=== PATIENT | female | born 1935 | race Caucasian/White ===

== ENCOUNTER 2017-05-18 10:26 | Inpatient (IN) ==
[2017-05-18] MEDS ORDERED: METOPROLOL TARTRATE 5 MG/5 ML VIAL IV ONE (11:02)
[2017-05-18 11:15] LABS: Basophils # (Auto) 0 K/mcL (0.0-0.3); Basophils % (Auto) 0.6 % (0.0-2.0); Eosinophils # (Auto) 0 K/mcL (0.0-0.7); Eosinophils % (Auto) 0.5 % (0.0-7.0); Granulocytes % (Auto) 80.3 % (38.0-78.0); Lymphocytes # (Auto) 0.7 K/mcL (1.5-4.8); Lymphocytes % (Auto) 12.1 % (15.5-49.0); Mean Cell Volume 94.2 fL (80.0-100.0); Mean Corpuscular HGB Conc 33.5 g/dL (31.0-36.0); Mean Corpuscular Hemoglobin 31.6 pg (26.0-34.0); Monocytes # (Auto) 0.4 K/mcL (0.1-0.9); Monocytes % (Auto) 6.5 % (1.0-12.0); Platelet Count 163 K/mcL (140-440); RBC 4.16 M/mcL (4.00-5.20); Red Cell Distribution Width 15.4 % (11.5-14.5)
[2017-05-18 11:37] LABS: ALT/SGPT 12 U/l (0-40); Albumin 4.2 gm/dL (3.2-5.2); Albumin/Globulin Ratio 1.8 (1.0-2.3); Alkaline Phosphatase 90 U/L (39-117); Blood Urea Nitrogen 14 mg/dl (8-23); Creatine Kinase 58 IU/L (24-170); Creatine Kinase MB 2.4 ng/ml (0-2.9)
[2017-05-18] MEDS ORDERED: 0.9 % SODIUM CHLORIDE 500 ML IV ONE (12:12)
[2017-05-18] MEDS ORDERED: DILTIAZEM 25 MG/5 ML VIAL IV ONE (12:13)
[2017-05-18] MEDS ORDERED: DILTIAZEM 125 MG in 0.9 % SODIUM CHLORIDE 100 ML IV SCH (12:15)
--- NOTE | 2017-05-18 12:20 | XRay Report ---
CLINICAL INFORMATION: Dyspnea COMPARISON: 07/04/2004 FINDINGS: The heart has increased and now moderately enlarged. Mediastinum is unremarkable. Pulmonary vessels are mildly distended and there is mild interstitial edema. Small infiltrate noted in the right base with minor atelectasis left base. IMPRESSION: Mild CHF Small right basilar infiltrate Interpreted and Authenticated by: Ryan Salinas 05/18/17
--- NOTE | 2017-05-18 12:21 | Emergency Department Note ---
SOB HPI - General Chief Complaint: Shortness of Breath/Dyspnea Stated Complaint: Shortness of breath, nausea Time Seen by Provider: 05/18/17 11:06 Source: patient Mode of arrival: wheelchair Limitations: no limitations - History of Present Illness 81-year-old female with a 5-6 day history of shortness of breath especially with exertion. She is to be able to walk a flight of stairs mildly short of breath but now she cannot even walk from room to room without getting out of breath. Her exercise tolerance is decreased and she feels like she is wheezing. Notes nausea but no vomiting. She is constipated lately and she is having decreased urine output. She denies any heart history especially atrial fibrillation or heart attacks - Related Data Home Medications Medication Instructions Recorded Confirmed ALPRAZolam [Xanax] 1 mg PO HS PRN 05/18/17 05/18/17 Levothyroxine Sodium [Tirosint] 137 mcg PO DAILY 05/18/17 05/18/17 Allergies Allergy/AdvReac Type Severity Reaction Status Date / Time No Known Drug Allergies Allergy Unverified 05/18/17 10:30 Review of Systems All systems ED: reviewed and negative except as stated. Past Medical History - Past Medical History Attestation: Yes: The following information was validated with the patient. Medical history: Reports: thyroid disease Surgical history ED: Reports: , cataract, cholecystectomy, colectomy, thyroidectomy Psychiatric history: Reports: anxiety Family history: Reports: CAD/MT - Social History smoking status: Never smoker Alcohol use: Reports: Recent (Nightly) Physical Exam Overweight female no acute distress. Normocephalic atraumatic. Conjunctive are clear sclerae nonicteric. No nasal discharge or congestion. Oropharynx is pink and moist. Neck is supple without lymphadenopathy thyromegaly. Scar from previous thyroidectomy. No carotid bruit. Heart is regular rhythm but tachycardic on auscultation. No murmur appreciated. Lungs are clear to auscultation bilaterally without wheezes rales rhonchi or respiratory distress. Abdomen soft nontender nondistended. No pedal edema. +2 radial pulse. Alert oriented able to answer questions appropriately. No dysarthria ataxia or tremor - General Limitations: no limitations Course Vital Signs Temperature 98.1 F 05/18/17 10:26 Pulse Rate 130 H 05/18/17 10:26 Respiratory Rate 22 05/18/17 10:26 Blood Pressure 140/85 05/18/17 10:26 Pulse Oximetry (%) 95 05/18/17 10:26 Temperature 97.8 F 05/18/17 20:00 Pulse Rate 59 L 05/18/17 20:41 Respiratory Rate 20 05/18/17 20:41 Blood Pressure 136/88 05/18/17 20:00 Pulse Oximetry (%) 93 05/18/17 20:00 Shortness of Breath/Dyspnea - Lab Data Lab results reviewed: Yes I reviewed the patient's lab results. Result diagrams: 05/18/17 10:50 05/18/17 10:50 Lab Results 05/18/17 05/18/17 05/18/17 Range/Units 10:50 10:50 10:50 WBC 5.7 (4.5-11.0) K/mcL RBC 4.16 (4.00-5.20) M/mcL Hgb 13.1 (12.0-15.0) g/dL Hct 39.2 (36.0-48.0) % POC Hct 41.0 (36.0-48.0) % MCV 94.2 (80.0-100.0) fL MCH 31.6 (26.0-34.0) pg MCHC 33.5 (31.0-36.0) g/dL RDW 15.4 H (11.5-14.5) % Plt Count 163 (140-440) K/mcL MPV 10.1 (7.4-10.4) fL Gran % 80.3 H (38.0-78.0) % Lymph % (Auto) 12.1 L (15.5-49.0) % Iron % (Auto) 6.5 (1.0-12.0) % Eos % (Auto) 0.5 (0.0-7.0) % Baso % (Auto) 0.6 (0.0-2.0) % Gran # 4.6 (1.8-8.0) K/mcL Lymph # (Auto) 0.7 L (1.5-4.8) K/mcL Iron # (Auto) 0.4 (0.1-0.9) K/mcL Eos # (Auto) 0 (0.0-0.7) K/mcL Baso # (Auto) 0 (0.0-0.3) K/mcL D-Dimer 1.06 H (0.00-0.40) ug/ml POC Sodium 135 (133-145) mmol/L Sodium 135 (133-145) mmol/L POC Potassium 3.8 (3.3-5.1) mmol/L Potassium 3.8 (3.3-5.1) mmol/L POC Chloride 102 (96-108) mmol/L Chloride 98 (96-108) mmol/L Carbon Dioxide 21 L (22-30) mmol/L POC Total CO2 21 L (22-30) mmol/L Anion Gap 16.0 (8-16) POC BUN 14 (8-23) mg/dl BUN 14 (8-23) mg/dl Creatinine 0.9 (0.6-1.1) mg/dl POC Creatinine 0.9 (0.6-1.1) mg/dl GFR Calculation 60 Glucose 149 H (70-105) mg/dL POC Glucose 148 H (70-105) mg/dL Calcium 8.1 L (8.6-10.4) mg/dl POC WB Ioniz Calcium 1.04 L (1.16-1.32) mmol/L Total Bilirubin 1.0 (0.0-1.0) mg/dL AST 16 (0-37) U/l ALT 12 (0-40) U/l Alkaline Phosphatase 90 (39-117) U/L Total Creatine Kinase 58 (24-170) IU/L CK-MB (CK-2) 2.4 (0-2.9) ng/ml Troponin T (0-0.03) ng/ml NT-Pro-B Natriuret Pep 1977.0 H (0-450) pg/ml Total Protein 6.6 (5.9-8.4) gm/dL Albumin 4.2 (3.2-5.2) gm/dL Globulin 2.4 (2.2-3.7) gm/dL Albumin/Globulin Ratio 1.8 (1.0-2.3) TSH (0.27-5.01) uIU/ml Free T4 (0.7-1.7) ng/dl 05/18/17 05/18/17 Range/Units 10:50 10:50 WBC (4.5-11.0) K/mcL RBC (4.00-5.20) M/mcL Hgb (12.0-15.0) g/dL Hct (36.0-48.0) % POC Hct (36.0-48.0) % MCV (80.0-100.0) fL MCH (26.0-34.0) pg MCHC (31.0-36.0) g/dL RDW (11.5-14.5) % Plt Count (140-440) K/mcL MPV (7.4-10.4) fL Gran % (38.0-78.0) % Lymph % (Auto) (15.5-49.0) % Iron % (Auto) (1.0-12.0) % Eos % (Auto) (0.0-7.0) % Baso % (Auto) (0.0-2.0) % Gran # (1.8-8.0) K/mcL Lymph # (Auto) (1.5-4.8) K/mcL Iron # (Auto) (0.1-0.9) K/mcL Eos # (Auto) (0.0-0.7) K/mcL Baso # (Auto) (0.0-0.3) K/mcL D-Dimer (0.00-0.40) ug/ml POC Sodium (133-145) mmol/L Sodium (133-145) mmol/L POC Potassium (3.3-5.1) mmol/L Potassium (3.3-5.1) mmol/L POC Chloride (96-108) mmol/L Chloride (96-108) mmol/L Carbon Dioxide (22-30) mmol/L POC Total CO2 (22-30) mmol/L Anion Gap (8-16) POC BUN (8-23) mg/dl BUN (8-23) mg/dl Creatinine (0.6-1.1) mg/dl POC Creatinine (0.6-1.1) mg/dl GFR Calculation Glucose (70-105) mg/dL POC Glucose (70-105) mg/dL Calcium (8.6-10.4) mg/dl POC WB Ioniz Calcium (1.16-1.32) mmol/L Total Bilirubin (0.0-1.0) mg/dL AST (0-37) U/l ALT (0-40) U/l Alkaline Phosphatase (39-117) U/L Total Creatine Kinase (24-170) IU/L CK-MB (CK-2) (0-2.9) ng/ml Troponin T < 0.01 (0-0.03) ng/ml NT-Pro-B Natriuret Pep (0-450) pg/ml Total Protein (5.9-8.4) gm/dL Albumin (3.2-5.2) gm/dL Globulin (2.2-3.7) gm/dL Albumin/Globulin Ratio (1.0-2.3) TSH 1.42 (0.27-5.01) uIU/ml Free T4 1.70 (0.7-1.7) ng/dl - Radiology Data Radiology results reviewed: Yes I reviewed the patient's radiology results. Chest x-ray shows mild CHF with pulmonary vascular congestion and enlarged heart - EKG Data EKG attestation: Yes I reviewed and interpreted this EKG. EKG results narrative: EKG #1 shows rate of 126 atrial flutter right bundle branch block left tear fascicular block. This is compared with previous on 07/12/2013 which shows a sinus rhythm with occasional PACs right bundle branch block and left anterior fascicular block. Both of these EKGs show left axis deviation EKG #2 is done after rate control initiated with Cardizem shows a rate of 64 atrial flutter with a 4-1 block right bundle branch block and left anterior fascicular block Disposition Pt seen by MECHANICAL ARTIST/PA only: No (MD only ) Clinical Impression: Atrial flutter with rapid ventricular response Congestive heart failure Qualifiers: Congestive heart failure type: unspecified congestive heart failure type Congestive heart failure chronicity: acute Qualified Code(s): I50.9 - Heart failure, unspecified Summary: Workup initially for cardiac causes reveals atrial flutter with rapid ventricular response. initial trial of therapy with metoprolol unresponsive. Then started Cardizem drip with rate control from the 130s down to 64 now on Cardizem 5 IV drip. Discussed case with Dr. Casper, computer science professor at [facility] who thought that we could handle this here-he recommended Eliquis, echocardiogram and rate control. He felt that after initial workup and treatment she could be seen by cardiology as an outpatient; he did however agreed to phone consult if symptoms worsen or other advice necessary. Discussed scenario with Dr. Fiore hospitalist who agreed to accept patient in transfer for further workup and treatment Patient then got up to go the bathroom and suddenly became short of breath, tachycardic. She recovered after having a bowel movement and then laying down. However she remains in atrial flutter, rate controlled on Cardizem drip Disposition: Xfer As Inpt ([facility]) Condition: Fair
[2017-05-18] MEDS ORDERED: WARFARIN 5 MG TABLET PO SCH (14:00)
[2017-05-18] MEDS ORDERED: DOCUSATE SODIUM 100 MG CAPSULE PO PRN (15:05)
[2017-05-18] MEDS ORDERED: MAGNESIUM HYDROXIDE 30 ML ORAL.SUSP PO PRN (15:05)
[2017-05-18] MEDS ORDERED: ACETAMINOPHEN 325 MG TABLET PO PRN (15:05)
[2017-05-18] MEDS ORDERED: ONDANSETRON 4 MG/2 ML VIAL IV PRN (15:05)
[2017-05-18] MEDS ORDERED: NALOXONE HCL 0.4 MG/ML VIAL IV PRN (15:05)
[2017-05-18] MEDS ORDERED: ALBUTEROL SULFATE 2.5 MG/3 ML NEBULIZER NEB PRN (15:05)
[2017-05-18] MEDS ORDERED: cefTRIAXone 1 GM in DEXTROSE 5% IN WATER 50 ML IV SCH (16:00)
[2017-05-18] MEDS: ALBUTEROL SULFATE 2.5 MG/3 ML NEBULIZER NEB SCH ×2 (16:02→20:40)
[2017-05-18] MEDS: DILTIAZEM 125 MG in 0.9 % SODIUM CHLORIDE 100 ML IV SCH (16:05)
[2017-05-18] MEDS ORDERED: IOPAMIDOL 100 ML BOTTLE IV ONE (16:43)
--- NOTE | 2017-05-18 17:00 | Cat Scan Report ---
CLINICAL INFORMATION: Elevated d-dimer new onset seizure with atrial flutter COMPARISON: 07/05/2004 TECHNIQUE: Axial images obtained through the chest. 80 intravenous contrast administration was administered, and scanning was performed during pulmonary arterial phase. Sagittally and coronally reformatted images were obtained. MIP reformatted images. FINDINGS: The pulmonary arteries are mildly enlarged compatible with CHF. There is mild interstitial edema throughout both lungs particularly in the interlobular septa of the upper lobes. There is no evidence of emboli within the pulmonary arteries. Small bilateral pleural effusions are noted compatible with CHF. There is minimal scattered atelectasis noted in the lower lobes, but no cheli infiltrates Mediastinal windows show the thoracic aorta to be normal in contour and caliber. There right subclavian artery is extends posterior to the esophagus. There is no adenopathy in the mediastinal hilar or axillary regions. The heart is moderately enlarged and there is a small/moderate pericardial effusion which is new. There are syndesmophytes bridging the mid thoracic spine - there history of ankylosing spondylitis? No other osseous abnormalities. IMPRESSION: 1. Moderate CHF 2. No evidence of pulmonary embolus 3. [id number] simple appearing pericardial effusion 4. 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
--- NOTE | 2017-05-18 17:05 | Internal Med History&Physical ---
Medical - H&P: HPI Patient information: Note initiated : 05/18/17 at 4:50 pm Patient: Ale Greene 81 y/o F admitted on 05/18/17 for Shortness of breath, nausea. History of present illness: is a 81 year old very few records in our system. She reports that she has noted decreased stamina and ability to do her usual activities, for about 2 years now. 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 She presented to the emergency room today complaining of several days of increasing shortness of breath and wheezing. She says she has felt like her chest is congested and she can hear rattling for the last 5-6 days. She is unaware of fever or chills, but does have a cough that is producing occasional clear to white phlegm. She has had some constipation and slight nausea, but thinks those are better. She has not really noticed any peripheral edema. She has been drinking lots of water over the last several months, on the advice of her daughter, but feels like her urine output is actually decreasing. Asked about salt intake, she initially said no change, but then admitted that they have been buying some prepared TV dinners from [employer] lately. She otherwise denies fever or chills, headaches or dizziness, new eye or ear symptoms, chest pain or palpitations, abdominal pain, vomiting, diarrhea, dysuria. ER evaluation found her to be in atrial flutter with a rate in the 130s initially. She was eventually controlled with a Cardizem drip. Initial troponin is negative. D-dimer is elevated. Chest x-ray suggests mild congestive heart failure, as well as a small right basilar infiltrate. Past medical history: Hypothyroidism. History of thyroid surgery. History of swimmer's ear. History of colon cancer, status post resection in 2004. Last colonoscopy 4 years ago, reportedly normal. History of chronic back and knee pain due to arthritis. Medications: . Levothyroxine 137 mcg daily. Xanax 1 mg nightly as needed Aleve, 2 tabs every morning, as needed arthritis pain Allergies: No known drug allergies. Family history: Mother at age 87 with a history of heart failure, diabetes , cervical cancer. Father's health is unknown. One brother with diabetes complications. She is unaware of any family history of KS or stroke. Social history: She is and lives with her . She has 3 sons. She drinks about 2 gin and tonic mixed drinks per day. She does not use tobacco or drugs. Medical - H&P: Meds Home Medications Medication Instructions Recorded Confirmed Type ALPRAZolam [Xanax] 1 mg PO HS PRN 05/18/17 05/18/17 History Levothyroxine Sodium [Tirosint] 137 mcg PO DAILY 05/18/17 05/18/17 History Allergies Allergy/AdvReac Type Severity Reaction Status Date / Time No Known Drug Allergies Allergy Unverified 05/18/17 10:30 Medical - H&P: Exam - Constitutional Vitals: Temp Pulse Resp BP Pulse Ox 99.3 F H 76 20 149/88 96 05/18/17 16:00 05/18/17 15:05 05/18/17 16:00 05/18/17 16:00 05/18/17 16:00 On exam, this is a well-developed, overweight elderly female in no acute distress. O2 saturations dropped to 89% on room air, currently 96% on 2 L.. Which are 99.3. Head: Normocephalic, atraumatic. Eyes: PERRLA, EOMI, anicteric. Ears: TMs and canals are clear. Pharynx: Is clear. Teeth are in good repair. Posterior pharynx shows no exudate. Neck: Is supple, without obvious JVD, lymphadenopathy, thyromegaly, bruits. Cardiac exam: Regular rate and rhythm, without obvious murmurs, rubs, gallops. Lungs: She does have soft crackles about one third up bilaterally, without obvious rhonchi or wheezes. Breathing is not labored. Abdomen: She has a very large lower abdomen scar, which is well-healed, related to previous C-sections and colon surgery. Abdomen is otherwise soft and nontender, with normal bowel sounds. Extremities: She has just a hint of edema at the ankles, and otherwise does not show cyanosis, clubbing, edema. Pulses are intact. Neurologic exam: Patient is alert and oriented, and cooperative. She does seem a little bit emotional at times. Motor exam is grossly nonfocal. Skin exam does not reveal any rashes or other worrisome lesions. Medical - H&P: Reslt - Labs CBC & Chem 7: 05/18/17 10:50 05/18/17 10:50 Labs: May 18: CBC differential: RDW is elevated at 15. Lymphocyte count is low at 700. Granulocyte count is normal. D-dimer is elevated at 1.06 Ionized calcium is low at 1.04 [place] LFTs are within normal limits. BNP is elevated at 1977 next TSH is normal at 1.4, free T4 is pending EKG: #1. Atrial flutter with variable rate, ranging from about 50-150. Right bundle branch block. #2. Shows apparent atrial flutter with apparent 4:1 block. Left axis deviation. Probable right bundle branch block. Chest x-ray: Compared to 2003, shows moderately enlarged heart. Mildly distended pulmonary vessels consistent with CHF, small right basilar infiltrate. Minor left base atelectasis. Echocardiogram: Report is pending. Medical - H&P: A/P (1) Pneumonia involving right lung Current visit: Yes Status: Acute (2) Alcohol use Current visit: Yes Status: Chronic (3) Atrial flutter with rapid ventricular response Current visit: Yes Status: Acute (4) Congestive heart failure Current visit: Yes Status: Acute - Narrative A/P Narrative: #1. Cardiac. -She presents with apparent new onset atrial flutter. She denies known history of this. She does drink alcohol on a regular basis, so there is the possibility of "holiday heart syndrome". She also could be status post recent KS, or she could have increased cardiac work related to pneumonia, or possible PE.. Admit to telemetry. Controlled rate with diltiazem, IV. Echocardiogram. Loaded with digoxin. Check follow-up cardiac enzymes. The ER MD did touch base with Dr. Beck of cardiology, who recommended we anticoagulate her with Eliquis, and have her follow-up with cardiology as an outpatient, once she is stable. -Chest x-ray and BNP are also suggestive of acute congestive heart failure. Echocardiogram is pending. Consider adding diuretics, LELAND inhibitor, beta-karin. -Since d-dimer is elevated, check CT angiogram. 2. Pulmonary/infectious disease. SIRS syndrome. -Patient appears to have a right basilar pneumonia. Check blood and sputum cultures. Cover empirically with Rocephin and Zithromax. #3. Chronic alcohol use. The patient reports moderate use of 2 drinks per day, but may be at risk for alcohol withdrawal, so will need to be monitored closely. This may also be playing a role in her cardiac arrhythmia. 4. CODE STATUS: Full code for now. Her would act as her POA. Her son is in the room with her, and is in agreement with this plan. 5. DVT prophylaxis: Subcu heparin, until I decide about anticoagulation regarding the atrial fibrillation. #6. History of hypothyroidism. TSH looks fine. Continue levothyroxine. 7. History of colon cancer. Last colonoscopy looked fine. 8. Chronic back pain and knee pain, due to arthritis. I would recommend that she stop taking the Aleve, as this may be irritating her heart. Try scheduled dose Tylenol. Consider physical therapy and weight loss, regular exercise. Approximately 70 minutes was spent today, reviewing the patient's case with the ER MD, reviewing test results, interviewing and examining her, and writing orders. Addendum Chest CT shows moderate CHF, moderate pericardial effusion, aberrant right subclavian artery. Atelectasis is noted, but no definite infiltrates/pneumonia. Negative for PE. I will discontinue antibiotics, and await echocardiogram results. Medical - H&P: Qual - Stroke Symptom Onset Unknown: No - VTE Deep Vein Thrombosis/Pulmonary Embolism Present on Admission: No
[2017-05-18] MEDS ORDERED: HYDROcodone/APAP 5/325MG TABLET PO PRN (17:44)
[2017-05-18] MEDS ORDERED: AZITHROMYCIN 500 MG in DEXTROSE 5% IN WATER 250 ML IV SCH (18:00)
[2017-05-18] MEDS: FUROSEMIDE 20 MG/2 ML VIAL IV SCH (18:16)
[2017-05-18] MEDS: DIGOXIN 500 MCG/2 ML AMPUL IV SCH ×2 (18:16→23:47)
[2017-05-18 21:17] LABS: Free T4 (Free Thyroxine) 1.7 ng/dl (0.7-1.7)
[2017-05-18] MEDS: ALPRAZolam 0.5 MG TABLET PO PRN (23:32)
[2017-05-19] MEDS: DIGOXIN 500 MCG/2 ML AMPUL IV SCH (05:42)
[2017-05-19 05:52] LABS: Basophils # (Auto) 0 K/mcL (0.0-0.3); Basophils % (Auto) 0.9 % (0.0-2.0); Eosinophils # (Auto) 0.1 K/mcL (0.0-0.7); Eosinophils % (Auto) 1.6 % (0.0-7.0); Lymphocytes % (Auto) 20.1 % (15.5-49.0); Mean Cell Volume 94.8 fL (80.0-100.0); Mean Corpuscular HGB Conc 33.4 g/dL (31.0-36.0); Mean Corpuscular Hemoglobin 31.6 pg (26.0-34.0); Monocytes # (Auto) 0.5 K/mcL (0.1-0.9); Monocytes % (Auto) 10.4 % (1.0-12.0); Platelet Count 137 K/mcL (140-440); RBC 3.94 M/mcL (4.00-5.20); Red Cell Distribution Width 15.3 % (11.5-14.5)
[2017-05-19 06:10] LABS: ALT/SGPT 9 U/l (0-40); Albumin 3.6 gm/dL (3.2-5.2); Albumin/Globulin Ratio 1.6 (1.0-2.3); Alkaline Phosphatase 79 U/L (39-117); Bilirubin,Direct < 0.2 mg/dL (0.0-0.3); Blood Urea Nitrogen 11 mg/dl (8-23); Gamma Glutamyl Transpeptidase 57 U/L (5-36); Magnesium 2.1 mg/dL (1.6-2.5); Uric Acid 6.6 mg/dL (2.5-8.0)
--- NOTE | 2017-05-19 07:14 | XRay Report ---
CLINICAL INFORMATION: CHF COMPARISON: 05/18/2017 FINDINGS: Moderate cardiomegaly is decreased. Mediastinum is unremarkable. Pulmonary vessel returned to normal in caliber and interstitial edema has cleared. Mild airspace disease in the right base has almost cleared. No definite effusion IMPRESSION: Interval resolution CHF. Near complete interval resolution of right basilar infiltrate Interpreted and Authenticated by: Ryan Salinas 05/19/17
[2017-05-19] MEDS: LEVOTHYROXINE 50 MCG TABLET PO SCH (07:50)
[2017-05-19] MEDS: LEVOTHYROXINE 88 MCG TABLET PO SCH (07:50)
[2017-05-19] MEDS ORDERED: LEVOTHYROXINE SODIUM 137 MCG PO SCH (09:00)
[2017-05-19] MEDS: FUROSEMIDE 20 MG/2 ML VIAL IV SCH ×2 (09:38→16:52)
[2017-05-19] MEDS: ENOXAPARIN 40 MG/0.4 ML SYRINGE SQ SCH (09:38)
[2017-05-19] MEDS: ALBUTEROL SULFATE 2.5 MG/3 ML NEBULIZER NEB SCH ×3 (10:24→20:52)
--- NOTE | 2017-05-19 12:51 | Internal Med Progress Note ---
Medical - PN: Subj Patient information: Note initiated : 05/19/17 at 12:48 pm Service Date, if different from initiated Date: [] Patient: Ale Greene 81 y/o F admitted on 05/18/17 for SOB, Nausea/Atrial Flutter with Rapid Ventricular . Chief Complaint: [] Interval history: May 18, 2017: History of present illness: is a 81 year old very few records in our system. She reports that she has noted decreased stamina and ability to do her usual activities, for about 2 years now. She is to stay busy all day, but now sits down quite a bit during the day in between her weight trainer. She presented to the emergency room today complaining of several days of increasing shortness of breath and wheezing. She says she has felt like her chest is congested and she can hear rattling for the last 5-6 days. She is unaware of fever or chills, but does have a cough that is producing occasional clear to white phlegm. She has had some constipation and slight nausea, but thinks those are better. She has not really noticed any peripheral edema. She has been drinking lots of water over the last several months, on the advice of her daughter, but feels like her urine output is actually decreasing. Asked about salt intake, she initially said no change, but then admitted that they have been buying some prepared TV dinners from [employer] lately. She otherwise denies fever or chills, headaches or dizziness, new eye or ear symptoms, chest pain or palpitations, abdominal pain, vomiting, diarrhea, dysuria. ER evaluation found her to be in atrial flutter with a rate in the 130s initially. She was eventually controlled with a Cardizem drip. Initial troponin is negative. D-dimer is elevated. Chest x-ray suggests mild congestive heart failure, as well as a small right basilar infiltrate. May 19: Overnight, the patient began to have slow heart rate and up to 2 second pauses, so Cardizem drip was discontinued. This morning her heart rate is ranging from 75-105. She thinks her shortness of breath might be better, but really has not been up moving around much. Denies chest pain or palpitations. Echocardiogram shows LVH, with normal ejection fraction of 60%. He does have biatrial enlargement. She is elevated pulmonary artery pressures of 50 mmHg. Otherwise, she denies fever or chills, headaches or dizziness, chest pain, abdominal pain, nausea or vomiting, diarrhea or constipation or dysuria. - Constitutional Vitals: Vital Signs Temp Pulse Resp BP Pulse Ox 98.6 F 80 24 H 138/82 94 05/19/17 12:00 05/19/17 12:04 05/19/17 12:00 05/19/17 12:04 05/19/17 12:04 Period Temp Pulse Resp BP Sys/Sarmiento Pulse Ox Last 24 Hr 97.8 F-99.3 F 59-87 16-24 96-149/56-108 92-97 Intake and Output 05/18/17 05/19/17 05/19/17 21:59 05:59 13:59 Intake Total 240 / 240 52 / 52 240 / 240 Output Total 200 / 200 1000 / 1000 1450 / 1450 Balance 40 / 40 -948 / -948 -1210 / -1210 Weight 275 lb Intake & Output: Intake & Output 05/18/17 05/19/17 05/19/17 21:59 05:59 13:59 Intake Total 240 / 240 52 / 52 240 / 240 Output Total 200 / 200 1000 / 1000 1450 / 1450 Balance 40 / 40 -948 / -948 -1210 / -1210 Weight 275 lb Intake: IV 52 / 52 Cardizem 125 mg In Sodium 52 / 52 Chloride 0.9% 100 ml @ 5 MG/HR 5 mls/hr IV Q24H [facility] Rx#:[id number] Oral 240 / 240 240 / 240 Output: Urine Catheter Amount 1000 / 1000 Void Amount 200 / 200 1450 / 1450 Other: Meal Dinner Breakfast Percent of Meal Consumed 100% 25% Feeding Ability Assist with Tray Set Up Independent # Voids 1 1 # Bowel Movements 1 1 Intake and output shows she is diuresed about 1600 mL so far. Heart rate ranging from 75-105. Respiratory rate ranges from 20-24. Blood pressure 138/82. Room air O2 saturation is 94%. She is awake and alert, although seems a bit tearful when talking about her who is at home and ill. Her son arrived during her visit today. He reassures her that the is doing fine. Neck is supple without obvious lymphadenopathy or JVD. Cardiac exam shows an irregularly irregular rhythm. Lungs: Show a few crackles at both bases, but no obvious rhonchi or wheezing. There is no accessory muscle use. Abdomen is soft and nontender. Extremities: Show no edema. Neurologic exam: Is grossly nonfocal. Medical - PN: Obj Da - Labs CBC & Chem 7: 05/19/17 03:39 05/19/17 03:39 Labs: Abnormal Lab Results 05/19/17 05/19/17 05/19/17 03:39 03:39 03:39 RBC 3.94 L RDW 15.3 H Plt Count 137 L Lymph # (Auto) 1.0 L PT 17.4 H INR 1.4 H Calcium 7.9 L GGT 57 H Total Protein 5.8 L May 19: Chest x-ray: Shows resolution of CHF. Is also near complete resolution of the right basilar infiltrate. Chest CT: From yesterday, shows moderate CHF. No PE. Moderate simple- appearing pericardial effusion. Aberrant right subclavian artery. EKG from this morning shows atrial fibrillation at a rate of about 100. May 18: CBC differential: RDW is elevated at 15. Lymphocyte count is low at 700. Granulocyte count is normal. D-dimer is elevated at 1.06 Ionized calcium is low at 1.04 [place] LFTs are within normal limits. BNP is elevated at 1977 next TSH is normal at 1.4, free T4 is pending EKG: #1. Atrial flutter with variable rate, ranging from about 50-150. Right bundle branch block. #2. Shows apparent atrial flutter with apparent 4:1 block. Left axis deviation. Probable right bundle branch block. Chest x-ray: Compared to 2003, shows moderately enlarged heart. Mildly distended pulmonary vessels consistent with CHF, small right basilar infiltrate. Minor left base atelectasis. Echocardiogram: Shows mild LVH, with left ventricular ejection fraction 60%. There is biatrial enlargement. Elevated pulmonary artery pressure of 50 mmHg. No pericardial effusion. Mild aortic insufficiency. Meds: Medications Acetaminophen (Tylenol) 650 mg PO Q6HP PRN PRN Reason: PAIN/FEVER > 101 Hydrocodone Bitart/Acetaminophen ([place] 5/325mg) 1 tab PO Q4-6HP PRN PRN Reason: Pain Albuterol Sulfate (Ventolin) 2.5 mg NEB Q4HRT PRN PRN Reason: Shortness Of Breath Or Wheezing Albuterol Sulfate (Ventolin) 2.5 mg NEB TID [facility] Last Admin: 05/19/17 10:24 Dose: 2.5 mg Alprazolam (Xanax) 1 mg PO HSP PRN PRN Reason: Insomnia Last Admin: 05/18/17 23:32 Dose: 1 mg Docusate Sodium (Colace) 100 mg PO BID PRN PRN Reason: Constipation Enoxaparin Sodium (Lovenox) 40 mg SQ DAILY [facility] Last Admin: 05/19/17 09:38 Dose: 40 mg Furosemide (Lasix) 20 mg IV BIDD [facility] Last Admin: 05/19/17 09:38 Dose: 20 mg Diltiazem HCl 125 mg/ Sodium (Chloride) 125 mls @ 5 mls/hr IV Q24H [facility]; 5 MG/HR PRN Reason: Protocol Last Titration: 05/19/17 02:29 Dose: 0 mg/hr, 0 mls/hr Levothyroxine Sodium (Synthroid) 88 mcg PO QAMAC [facility] Last Admin: 05/19/17 07:50 Dose: 88 mcg Levothyroxine Sodium (Synthroid) 50 mcg PO QAMAC [facility] Last Admin: 05/19/17 07:50 Dose: 50 mcg Magnesium Hydroxide (Milk Of Magnesia) 30 ml PO DAILYP PRN PRN Reason: Constipation Morphine Sulfate (Morphine) 2 mg IV Q2H PRN PRN Reason: Pain Naloxone HCl (Narcan) 0.1 mg IV Q2MIN PRN PRN Reason: Opiate Reversal Ondansetron HCl (Zofran) 4 mg IV Q4HP PRN PRN Reason: Nausea And Vomiting Warfarin Sodium (Coumadin Per Pharmacy) 1 order PO [facility] [place] Warfarin Sodium (Coumadin) 2 mg PO ONCE ONE Stop: 05/19/17 14:01 Medical - PN: A/P - Time Spent With Patient Total time spent is greater than 50% in coordination of care (as documented) at patient's floor/unit and/or counseling patient: 25 - 35 minutes (1) Pneumonia involving right lung Status: Acute Current Visit: Yes (2) Alcohol use Status: Chronic Current Visit: Yes (3) Atrial flutter with rapid ventricular response Status: Acute Current Visit: Yes (4) Congestive heart failure Status: Acute Current Visit: Yes - Narrative A/P Narrative: #1. Cardiac. -She presents with apparent new onset atrial flutter. She denies known history of this. She does drink alcohol on a regular basis, so there is the possibility of "holiday heart syndrome". She also could be status post recent CT, or she could have increased cardiac work related to pneumonia, or possible PE.. Overnight, she developed some pauses on the diltiazem drip, so that was discontinued. This morning she is in atrial fibrillation, with a fairly controlled rate. She was given 2 doses of IV digoxin last night. -Continue to monitor on telemetry. Stop digoxin. She may need metoprolol or diltiazem for rate control, but we will need to be careful about bradycardia. CT ruled out by enzymes. The ER MD did touch base with Dr. Beck of cardiology, who recommended we anticoagulate her with Eliquis, and have her follow-up with cardiology as an outpatient, once she is stable. The patient would prefer to use Coumadin rather than Eliquis, as her is on Coumadin, and she does not want extra cost. Consider adding diuretics, beta-karin. 2. Pulmonary/infectious disease. SIRS syndrome. CT did not show pneumonia. Antibiotics were discontinued. #3. Chronic alcohol use. The patient reports moderate use of 2 drinks per day, but may be at risk for alcohol withdrawal, so will need to be monitored closely. This may also be playing a role in her cardiac arrhythmia. 4. CODE STATUS: Full code for now. Her would act as her POA. Her son is in the room with her, and is in agreement with this plan. 5. DVT prophylaxis: Subcu heparin, until I decide about anticoagulation regarding the atrial fibrillation. #6. History of hypothyroidism. TSH looks fine. Continue levothyroxine. 7. History of colon cancer. Last colonoscopy looked fine. 8. Chronic back pain and knee pain, due to arthritis. I would recommend that she stop taking the Aleve, as this may be irritating her heart. Try scheduled dose Tylenol. Consider physical therapy and weight loss, regular exercise. 9. Hematologic. Platelets are borderline low today. Continue to monitor. Medical - PN: Qual - Stroke Symptom Onset Unknown: No - VTE Deep Vein Thrombosis/Pulmonary Embolism Present on Admission: No
[2017-05-19] MEDS ORDERED: WARFARIN 2 MG TABLET PO ONE (14:00)
[2017-05-19] MEDS: DILTIAZEM 125 MG in 0.9 % SODIUM CHLORIDE 100 ML IV SCH (16:51)
[2017-05-19] MEDS: ALPRAZolam 0.5 MG TABLET PO PRN (20:02)
[2017-05-20 04:38] LABS: Basophils # (Auto) 0 K/mcL (0.0-0.3); Basophils % (Auto) 0.9 % (0.0-2.0); Eosinophils # (Auto) 0.1 K/mcL (0.0-0.7); Eosinophils % (Auto) 2.2 % (0.0-7.0); Granulocytes % (Auto) 65.5 % (38.0-78.0); Lymphocytes % (Auto) 19.7 % (15.5-49.0); Mean Cell Volume 94.5 fL (80.0-100.0); Mean Corpuscular HGB Conc 33.9 g/dL (31.0-36.0); Monocytes # (Auto) 0.6 K/mcL (0.1-0.9); Monocytes % (Auto) 11.7 % (1.0-12.0); Platelet Count 151 K/mcL (140-440); RBC 3.75 M/mcL (4.00-5.20); Red Cell Distribution Width 15.4 % (11.5-14.5)
[2017-05-20 05:00] LABS: ALT/SGPT 8 U/l (0-40); Albumin 3.6 gm/dL (3.2-5.2); Albumin/Globulin Ratio 1.6 (1.0-2.3); Alkaline Phosphatase 84 U/L (39-117); Bilirubin,Direct < 0.2 mg/dL (0.0-0.3); Blood Urea Nitrogen 14 mg/dl (8-23); Gamma Glutamyl Transpeptidase 58 U/L (5-36); Magnesium 2.1 mg/dL (1.6-2.5); Uric Acid 7.1 mg/dL (2.5-8.0)
[2017-05-20] MEDS: LEVOTHYROXINE 88 MCG TABLET PO SCH (07:23)
[2017-05-20] MEDS: LEVOTHYROXINE 50 MCG TABLET PO SCH (07:24)
[2017-05-20] MEDS: ENOXAPARIN 40 MG/0.4 ML SYRINGE SQ SCH (08:00)
[2017-05-20] MEDS ORDERED: POTASSIUM CHLORIDE 20 MEQ TABLET PO SCH (08:00)
[2017-05-20] MEDS ORDERED: FUROSEMIDE 20 MG TABLET PO SCH (09:00)
[2017-05-20] MEDS: ALBUTEROL SULFATE 2.5 MG/3 ML NEBULIZER NEB SCH (09:51)
--- NOTE | 2017-05-20 10:11 | Discharge Summary ---
Medical - DS: Prov Patient information: Note initiated : 05/20/17 at 10:06 am Service Date, if different from initiated Date: [] Patient: Ale Greene 81 y/o F admitted on 05/18/17 for SOB, Nausea/Atrial Flutter with Rapid Ventricular . Chief Complaint: [] Date of admission: 05/18/17 14:43 Discharge date: 05/20/17 Primary care physician: Angela El Admitting clinician: Michelle Daily Discharging clinician: Maria Eugenia Pena Medical - DS: Meds - Discharge Medications Prescriptions: Furosemide [Lasix] 20 mg PO DAILY #10 tablet Potassium Chloride [Kdur] 20 meq PO QAC #10 tablet Active and Home Medications: Home Medications ALPRAZolam [Xanax] 1 mg PO HS PRN 05/18/17 [History Confirmed 05/18/17 Last Taken Unknown] Levothyroxine Sodium [Tirosint] 137 mcg PO DAILY 05/18/17 [History Confirmed Last Taken 05/18/17 08:00] Medical - DS: Hosp Hospital course: This is an 81-year-old female who was admitted on 05/18/17 with exercise intolerance and shortness of breath. She was found to be in A. fib/flutter with rapid ventricular response and pulmonary edema. She states that she has been pushing fluids lately on the advice of her daughter and to prevent urinary tract infections. She was treated with diltiazem and IV digoxin. This resulted in several 2-second pauses. She ultimately converted to sinus rhythm on 05/19/17. I suspect that her pulmonary edema was the precipitating cause of her A. fib/ flutter. Troponins were negative The ER discussed her case with of cardiology who advised outpatient follow-up with him. She has an elevated Chads-vasc score and is agreeable to anticoagulation for stroke prevention. She has requested be on Coumadin rather than an anomaly anticoagulant for cost reasons. There was initial concern for pneumonia on chest x-ray. CTA of the chest was done to rule out PE and did not show significant infiltrate. Antibiotics were discontinued. She endorses a history of chronic alcohol use with 4-5 ounces of gin nightly. We discussed that this may play a role in her atrial fibrillation and I advised her to cut down. She was encouraged to avoid NSAIDs and alcohol with her Coumadin use.She has been started on a short course of diuretics and is aware that she needs to have lab work done early next week to follow up her potassium , renal function and INR. FOLLOW UP ISSUES: -Recommend INR, BMP be drawn on Thursday. -Cutting down on alcohol use - PT ordered -Consider Beta karin if a fib recurs Discharge diagnosis: rapid a fib Secondary discharge diagnosis: acute pulmonary edema 2/2 CHF with preserved EF chronic EtoH use - Time Spent with Patient Total time spent providing and/or coordinating discharge services: Greater than 30 minutes Medical - DS: Exam - Constitutional Vitals: Vital Signs Temp Pulse Pulse Resp BP BP BP 05/20/17 09:53 66 18 05/20/17 04:00 98.3 F 66 18 114/60 05/19/17 20:55 75 16 05/19/17 20:02 112/48 05/19/17 20:00 98.6 F 68 18 112/48 05/19/17 16:07 72 18 05/19/17 16:04 124/68 05/19/17 16:00 98.4 F 18 137/78 05/19/17 15:58 98.4 F 67 20 124/68 05/19/17 12:18 117/64 05/19/17 12:04 80 138/82 05/19/17 12:02 146/105 05/19/17 12:00 98.6 F 75 24 H 117/64 138/82 05/19/17 10:26 80 16 Pulse Ox 05/20/17 09:53 05/20/17 04:00 94 05/19/17 20:55 93 05/19/17 20:02 05/19/17 20:00 05/19/17 16:07 05/19/17 16:04 05/19/17 16:00 94 05/19/17 15:58 94 05/19/17 12:18 05/19/17 12:04 94 05/19/17 12:02 05/19/17 12:00 92 05/19/17 10:26 Intake and Output 05/19/17 05/20/17 05/20/17 21:59 05:59 13:59 Intake Total 0 / 0 Balance 0 / 0 Intake: Oral 0 / 0 Other: Weight 272 lb 8 oz Additional comments: Gen: NAD HEENT: NCAT CV: RRR Resp: mildly tachypneic. Low WOB. Bibasilar crackles Abd: soft, nd, nt NRO: A/O x 3. No focal deficits Medical - DS: Data Procedures and tests throughout hospitalization: Echo shows mild LVH with an EF of 60-65%. Biatrial enlargement. Estimated pulmonary artery pressure is 50 mmHg. CTA of the chest is negative for PE and shows moderate pulmonary edema. He also shows a small-to moderate simple appearing pericardial effusion Labs on day of discharge: Labs from last 24 hours 05/20/17 05/20/17 05/20/17 03:35 03:35 03:35 WBC 4.9 RBC 3.75 L Hgb 12.0 Hct 35.5 L MCV 94.5 MCH 32.0 MCHC 33.9 RDW 15.4 H Plt Count 151 MPV 10.1 Gran % 65.5 Lymph % (Auto) 19.7 [place] % (Auto) 11.7 Eos % (Auto) 2.2 Baso % (Auto) 0.9 Gran # 3.2 Lymph # (Auto) 1.0 L [place] # (Auto) 0.6 Eos # (Auto) 0.1 Baso # (Auto) 0 PT 17.1 H INR 1.4 H Sodium 139 Potassium 3.7 Chloride 102 Carbon Dioxide 25 Anion Gap 12.0 BUN 14 Creatinine 1.1 GFR Calculation 47 Glucose 116 H Uric Acid 7.1 Calcium 8.0 L Phosphorus 3.5 Magnesium 2.1 Total Bilirubin 0.7 Direct Bilirubin < 0.2 GGT 58 H AST 16 ALT 8 Alkaline Phosphatase 84 Lactate Dehydrogenase 154 Total Protein 5.8 L Albumin 3.6 Globulin 2.2 Albumin/Globulin Ratio 1.6 Triglycerides 81 Preliminary micro results at discharge 05/18/17 15:21 Blood Culture - Preliminary Blood 05/18/17 15:35 Blood Culture - Preliminary Blood Medical - DS: A/P - Patient/Caregiver Discharge Instructions Activity: as per physical therapy Diet: Regular Diet Additional Instructions: 1. Follow up with your primary care provider on Thursday to get labs drawn (INR, BMP). 2. Continue taking diuretic (Lasix/furosemide and KCl). I have given you a 10 day supply. Follow-up with Dr. El to see if you need to continue this. 3. Cut down on your alcohol intake; no more than 1-2 oz hard alcohol daily. 4. Avoid NSAIDs, aspirin, alcohol while taking Coumadin. 5. Follow up with Dr. Casper with cardiology regarding your a fib. Prescriptions: Furosemide [Lasix] 20 mg PO DAILY #10 tablet Potassium Chloride [Kdur] 20 meq PO [facility] #10 tablet - Follow up Plan Follow up with: Angela El MD [Primary Care Provider] - 06/03/17 9:45 am (Please continue with your crrently scheduled appointmet) Disposition: Home Health Service Prognosis: Fair Rehab Potential: Good I certify that the patient requires SNF services: No Overall status at discharge: patient is progressing back to baseline Medical - DS: Qual - VTE Deep Vein Thrombosis/Pulmonary Embolism Present on Admission: No
[2017-05-20] MEDS ORDERED: WARFARIN 4 MG TABLET PO ONE (14:00)
== END 2017-05-20 14:40 | disposition home health service (06) | DRG 502 ==
LOC: ED 10:26 → ICU 14:43
PROVIDERS: ADMIT Internal Medicine; ATTEND Internal Medicine

== ENCOUNTER 2017-06-29 16:01 | Inpatient (IN) ==
[2017-06-29] MEDS ORDERED: DILTIAZEM 25 MG/5 ML VIAL IV ONE (16:17)
--- NOTE | 2017-06-29 16:17 | Emergency Department Note ---
Arrhythmia/Palpitations HPI - General Chief Complaint: Arrhythmia/Palpitations Stated Complaint: pt in a-flutter, sent from Dr. Tolbert's office Time Seen by Provider: 06/29/17 16:13 Source: patient Mode of arrival: wheelchair Limitations: no limitations - History of Present Illness HPI Narrative: This patient was sent over from Dr. Tolbert's office with atrial flutter. She is unaware of how long it has been this way. Her heart rate is in the 130 range. She has had some dyspnea on exertion recently. She was hospitalized the end of April with pneumonia and was in atrial flutter at that time as well. MD Complaint: rapid heart beat Onset (ago): unknown Duration: constant Severity: mild Context: occurred during rest Arrhythmia History: atrial fibrillation Associated symptoms: Reports: shortness of breath - Related Data Home Medications Medication Instructions Recorded Confirmed ALPRAZolam [Xanax] 1 mg PO HS PRN 05/18/17 06/29/17 Levothyroxine Sodium [Tirosint] 137 mcg PO DAILY 05/18/17 06/29/17 Allergies Allergy/AdvReac Type Severity Reaction Status Date / Time furosemide [From Lasix] Allergy Intermediate Rash Verified 06/29/17 16:05 Review of Systems All systems ED: reviewed and negative except as stated. Past Medical History - Past Medical History Medical history: Reports: atrial fibrillation, cancer (:), CHF, thyroid disease Surgical history ED: Reports: , cataract, cholecystectomy, colectomy, thyroidectomy Psychiatric history: Reports: anxiety - Social History smoking status: Never smoker Alcohol use: Reports: Recent (Nightly) Physical Exam - General Limitations: no limitations General appearance: alert, in no apparent distress - Head Head exam: atraumatic - Eye Eye exam: Present: normal appearance - ENT ENT exam: normal exam - Neck Neck exam: Present: normal inspection - Chest Chest inspection: Present: normal inspection - Respiratory Respiratory exam: Present: normal lung sounds bilaterally - Cardiovascular Cardiovascular exam: Present: regular rate, normal rhythm, normal heart sounds - Abdominal Exam Abdominal exam: Present: soft. Absent: distention, tenderness - Neurological Exam Neurological exam: Present: alert - Psychiatric Psychiatric exam: Present: normal affect, normal mood - Skin Skin exam: Present: warm, dry, intact Course Vital Signs Temperature 98.3 F 06/29/17 16:02 Pulse Rate 136 H 06/29/17 16:02 Respiratory Rate 20 06/29/17 16:02 Blood Pressure 125/87 06/29/17 16:02 Pulse Oximetry (%) 95 06/29/17 16:02 Temperature 98.3 F 06/29/17 16:02 Pulse Rate 64 06/29/17 18:31 Respiratory Rate 18 06/29/17 18:31 Blood Pressure 124/81 06/29/17 18:31 Pulse Oximetry (%) 96 06/29/17 18:31 Arrhythmia/Palpitations - [facility] Narrative Medical decision making narrative: Patient's atrial flutter was controlled with diltiazem but she was still short of breath when she got up and moved around. She will be admitted to telemetry per Dr. Nayak. - Lab Data Lab results reviewed: Yes I reviewed the patient's lab results. Result diagrams: 06/29/17 16:36 06/29/17 16:36 Lab Results 06/29/17 06/29/17 06/29/17 Range/Units 16:36 16:36 16:36 WBC 7.3 (4.5-11.0) K/mcL RBC 4.73 (4.00-5.20) M/mcL Hgb 14.8 (12.0-15.0) g/dL Hct 43.9 (36.0-48.0) % MCV 92.7 (80.0-100.0) fL MCH 31.3 (26.0-34.0) pg MCHC 33.7 (31.0-36.0) g/dL RDW 14.2 (11.5-14.5) % Plt Count 189 (140-440) K/mcL MPV 10.4 (7.4-10.4) fL Gran % 77.6 (38.0-78.0) % Lymph % (Auto) 13.9 L (15.5-49.0) % [place] % (Auto) 7.3 (1.0-12.0) % Eos % (Auto) 0.5 (0.0-7.0) % Baso % (Auto) 0.7 (0.0-2.0) % Gran # 5.7 (1.8-8.0) K/mcL Lymph # (Auto) 1.0 L (1.5-4.8) K/mcL [place] # (Auto) 0.5 (0.1-0.9) K/mcL Eos # (Auto) 0 (0.0-0.7) K/mcL Baso # (Auto) 0.1 (0.0-0.3) K/mcL Sodium 138 (133-145) mmol/L Potassium 4.0 (3.3-5.1) mmol/L Chloride 101 (96-108) mmol/L Carbon Dioxide 21 L (22-30) mmol/L Anion Gap 16.0 (8-16) BUN 15 (8-23) mg/dl Creatinine 1.0 (0.6-1.1) mg/dl GFR Calculation 52 Glucose 110 H (70-105) mg/dL Calcium 8.7 (8.6-10.4) mg/dl Total Bilirubin 0.9 (0.0-1.0) mg/dL AST 19 (0-37) U/l ALT 10 (0-40) U/l Alkaline Phosphatase 84 (39-117) U/L Troponin T < 0.01 (0-0.03) ng/ml NT-Pro-B Natriuret Pep 2196.0 H (0-450) pg/ml Total Protein 6.7 (5.9-8.4) gm/dL Albumin 4.0 (3.2-5.2) gm/dL Globulin 2.7 (2.2-3.7) gm/dL Albumin/Globulin Ratio 1.5 (1.0-2.3) - Radiology Data Radiology results reviewed: Yes I reviewed the patient's radiology results. Disposition Pt seen by MACHINE APPLICATOR CEMENTER/PA only: No Clinical Impression: Atrial flutter Disposition: Xfer As Inpt ([facility]) Condition: Good Referrals: Angela El MD [Primary Care Provider] - Time of Disposition: 18:39
[2017-06-29] MEDS ORDERED: DILTIAZEM 125 MG in 0.9 % SODIUM CHLORIDE 100 ML IV SCH (16:30)
--- NOTE | 2017-06-29 16:46 | XRay Report ---
INDICATION: Dyspnea TECHNIQUE: AP portable semi upright chest x-ray, COMPARISON: Chest x-rays dated 05/19/2017, 05/18/2017, 07/04/2004 FINDINGS:Cardiomegaly. This is considered unchanged since 05/19/2017. Vascularity is unremarkable. No pulmonary congestion. No pulmonary edema. No focal pulmonary parenchymal consolidation. [place] and mediastinum are negative. No acute interval change IMPRESSION: 1. Cardiomegaly 2. No pulmonary edema or pulmonary congestion. No focal pulmonary parenchymal infiltrate 3. No interval change since 05/19/2017 Interpreted and Authenticated by: Ryan Mercado 06/29/17
[2017-06-29 17:05] LABS: Basophils # (Auto) 0.1 K/mcL (0.0-0.3); Basophils % (Auto) 0.7 % (0.0-2.0); Eosinophils # (Auto) 0 K/mcL (0.0-0.7); Eosinophils % (Auto) 0.5 % (0.0-7.0); Granulocytes % (Auto) 77.6 % (38.0-78.0); Lymphocytes % (Auto) 13.9 % (15.5-49.0); Mean Cell Volume 92.7 fL (80.0-100.0); Mean Corpuscular HGB Conc 33.7 g/dL (31.0-36.0); Mean Corpuscular Hemoglobin 31.3 pg (26.0-34.0); Monocytes # (Auto) 0.5 K/mcL (0.1-0.9); Monocytes % (Auto) 7.3 % (1.0-12.0); Platelet Count 189 K/mcL (140-440); RBC 4.73 M/mcL (4.00-5.20); Red Cell Distribution Width 14.2 % (11.5-14.5)
[2017-06-29 17:38] LABS: ALT/SGPT 10 U/l (0-40); Albumin/Globulin Ratio 1.5 (1.0-2.3); Alkaline Phosphatase 84 U/L (39-117); Blood Urea Nitrogen 15 mg/dl (8-23)
--- NOTE | 2017-06-29 19:44 | Internal Med History&Physical ---
Medical - H&P: [facility] Patient information: Note initiated : 06/29/17 at 7:37 pm Service Date, if different from initiated Date: [] Patient: Ale Greene 82 y/o F admitted on for pt in [facility], sent from Dr. Tolbert's office. Chief Complaint: [] Chief complaint: Rapid heart rate History of present illness: is a 82 year old F ith a History of atrial fibrillation who was recently hospitalized end of April. She was discharged after a short stay after she converted into sinus and was recommended outpatient Coumadin and a cardiology follow-up. Patient since then hasn't had any Coumadin or her INR checks and actually as able to get a casting and curing operator appointment today. At the casting and curing operator's office she was found to be tachycardic around 130s to 140s atrial fibrillation with RVR and patient was ubsequentlyhe directed to [facility] ER. initial workup in the ER revealed atrial fibrillation with rapid ventricular rate. Patient was started on diltiazem drip for rate control. EKG was nremarkable. Chest x-ray did not show any evidence of decompensated heart failure. Hospitalist service was consulted. At the time of examination patient is alert oriented. She is accompanied with her and daughter kayleen. She denies recent changes in medication. She recently had a reaction to Lasix with lower extremity rash and subsequently stopped. She however denies chest palpitations and lightheadedness dizziness diaphoresis or chest pain. She drinks3-4 ounces off gin every night and despite recommendations during previous hospitalization patient has continued to consume alcohol moderately. She denies recent withdrawal symptoms. Other than that patient denies weight loss or weight gain diarrhea, dysuria. She short of breath at baseline which hasn't changed much in the last few days. She has had a high salt diet in the last couple of days during her body celebration and onsumed crabs Review of systems A 10 point review of system was performed and is negative except for what is discussed above. Medical - H&P: PMH Medical history: Hypothyroidism. recent atrial fibrillation History of thyroid surgery. History of swimmer's ear. History of colon cancer, status post resection in 2004. Last colonoscopy 4 years ago, reportedly normal. History of chronic back and knee pain due to arthritis. Pertinent family history: Mother at age 87 with a history of heart failure, diabetes, cervical cancer. One brother with diabetes complications. Social history: lives with her and daughter Smoking status: Never smoker Have you smoked in the last 12 months: No Drug use: none Alcohol use: sober (-4 ounces daily) Medical - H&P: Meds Home Medications Medication Instructions Recorded Confirmed Type ALPRAZolam [Xanax] 1 mg PO HS PRN 05/18/17 06/29/17 History Levothyroxine Sodium [Tirosint] 137 mcg PO DAILY 05/18/17 06/29/17 History Allergies Allergy/AdvReac Type Severity Reaction Status Date / Time furosemide [From Lasix] Allergy Intermediate Rash Verified 06/29/17 16:05 Medical - H&P: Exam - Constitutional Vitals: Temp Pulse Resp BP Pulse Ox 98.3 F 79 18 156/104 96 06/29/17 16:02 06/29/17 19:25 06/29/17 19:25 06/29/17 19:14 06/29/17 19:25 General appearance: cooperative, obese Exam: eye movements normal no eardischarge Head normocephalic Oral cavity dry No lymphadenopathy JVD Atrial fibrillation irregular rhythm tachycardia Diminished breath sounds bases Abdomen soft Lower extremity no cyanosis clubbing or edema Skin no suspicious lesion Psych alert cooperative neuro nonfocal Medical - H&P: Reslt - Labs CBC & Chem 7: 06/29/17 16:36 06/29/17 16:36 Labs: Short CBC 06/29/17 Range/Units 16:36 WBC 7.3 (4.5-11.0) K/mcL Hgb 14.8 (12.0-15.0) g/dL Hct 43.9 (36.0-48.0) % Plt Count 189 (140-440) K/mcL BMP 06/29/17 16:36 Sodium 138 Potassium 4.0 Chloride 101 Carbon Dioxide 21 L BUN 15 Creatinine 1.0 Glucose 110 H Calcium 8.7 Cardiac Enzymes 06/29/17 Range/Units 16:36 Troponin T < 0.01 (0-0.03) ng/ml Liver Function 06/29/17 Range/Units 16:36 Total Bilirubin 0.9 (0.0-1.0) mg/dL AST 19 (0-37) U/l ALT 10 (0-40) U/l Alkaline Phosphatase 84 (39-117) U/L Albumin 4.0 (3.2-5.2) gm/dL Medical - H&P: A/P (1) Atrial flutter with rapid ventricular response Current visit: No Status: Acute * Atrial fibrillation/flutter with RVR-ate controlled on diltiazem,transitioned to oral diltiazem. Unclear precipitant. Reviewed echocardiogram with normal EF as of 05/18. chads Score 2 over to mandating anticoagulation. Start Coumadin * history of alcohol dependence-monitor for withdrawal * hypothyroidism on thyroxine * Osteoarthritis with chronic pain-at baseline Plan * rate control measures * initiate Coumadin * Pre-existing medical condition management as above * telemetry admit * Anticipate minimum midnight stay mandating inpatient hospitalization
[2017-06-29] MEDS ORDERED: ONDANSETRON 4 MG/2 ML VIAL IV PRN (20:12)
[2017-06-29] MEDS ORDERED: MAGNESIUM SULFATE 2 GM/50 ML BAG IV PRN (20:12)
[2017-06-29] MEDS ORDERED: MAGNESIUM HYDROXIDE 30 ML ORAL.SUSP PO PRN (20:12)
[2017-06-29] MEDS ORDERED: POTASSIUM CHLORIDE 20 MEQ PACKET PO PRN (20:12)
[2017-06-29] MEDS ORDERED: traZODone HCL 50 MG TABLET PO PRN (20:12)
[2017-06-29] MEDS ORDERED: ACETAMINOPHEN 325 MG TABLET PO PRN (20:12)
[2017-06-29] MEDS ORDERED: ACETAMINOPHEN 1,000 MG/100 ML BOTTLE IV PRN (20:12)
[2017-06-29] MEDS: METOPROLOL TARTRATE 5 MG/5 ML VIAL IV SCH ×2 (21:03→21:04)
[2017-06-29] MEDS: DOCUSATE SODIUM 100 MG CAPSULE PO SCH (21:11)
[2017-06-29] MEDS: 0.9 % SODIUM CHLORIDE 10 ML SYRINGE IV SCH (21:11)
[2017-06-29] MEDS: METOPROLOL TARTRATE 25 MG TABLET PO SCH (21:11)
[2017-06-29] MEDS: SENNOSIDES/DOCUSATE SODIUM 1 TAB TABLET PO SCH (21:11)
[2017-06-29] MEDS: HEPARIN 5,000 UNIT/ML VIAL SQ SCH (21:11)
[2017-06-29] MEDS: ALPRAZolam 0.5 MG TABLET PO PRN (22:20)
[2017-06-30 06:17] LABS: Mean Cell Volume 93.1 fL (80.0-100.0); Mean Corpuscular HGB Conc 34.1 g/dL (31.0-36.0); Mean Corpuscular Hemoglobin 31.8 pg (26.0-34.0); Platelet Count 178 K/mcL (140-440); RBC 4.33 M/mcL (4.00-5.20); Red Cell Distribution Width 14.2 % (11.5-14.5)
[2017-06-30 06:33] LABS: ALT/SGPT 9 U/l (0-40); Albumin 3.5 gm/dL (3.2-5.2); Albumin/Globulin Ratio 1.5 (1.0-2.3); Alkaline Phosphatase 77 U/L (39-117); Bilirubin,Direct < 0.2 mg/dL (0.0-0.3); Blood Urea Nitrogen 12 mg/dl (8-23); Gamma Glutamyl Transpeptidase 44 U/L (5-36); Magnesium 2.2 mg/dL (1.6-2.5); Uric Acid 7.2 mg/dL (2.5-8.0)
[2017-06-30] MEDS: HEPARIN 5,000 UNIT/ML VIAL SQ SCH ×2 (07:57→21:16)
[2017-06-30] MEDS: LEVOTHYROXINE SODIUM 112 MCG TABLET PO SCH (07:57)
[2017-06-30] MEDS: MULTIVIT,THER IRON,CA,FA & MIN 1 TABLET PO SCH (07:57)
[2017-06-30] MEDS: LEVOTHYROXINE 25 MCG TABLET PO SCH (07:58)
[2017-06-30] MEDS: DOCUSATE SODIUM 100 MG CAPSULE PO SCH ×2 (07:58→21:13)
[2017-06-30] MEDS: METOPROLOL TARTRATE 25 MG TABLET PO SCH ×2 (07:58→21:16)
[2017-06-30] MEDS: 0.9 % SODIUM CHLORIDE 10 ML SYRINGE IV SCH ×3 (07:58→22:37)
[2017-06-30] MEDS: DILTIAZEM 125 MG in 0.9 % SODIUM CHLORIDE 100 ML IV SCH ×2 (07:58→15:52)
[2017-06-30 08:01] LABS: Band Neutrophils % 1 % (0-10); Eosinophils % (Manual) 1 % (0-7); Lymphocytes % 26 % (15-49); Monocytes % (Manual) 12 % (1-12); Platelet Estimate NORMAL (NORMAL); RBC Morphology NORMAL (NORMAL); Segmented Neutrophils % 60 % (38-78)
[2017-06-30] MEDS ORDERED: WARFARIN 4 MG TABLET PO SCH (14:00)
--- NOTE | 2017-06-30 17:20 | Internal Med Progress Note ---
Medical - PN: Subj Patient information: Note initiated : 06/30/17 at 5:20 pm Service Date, if different from initiated Date: [] Patient: Ale Greene 82 y/o F admitted on 06/29/17 for Patient in A-Flutter, sent from Dr. Tolbert's office. Chief Complaint: [] Interval history: is a 82 year old F ith a History of atrial fibrillation who was recently hospitalized end of April. She was discharged after a short stay after she converted into sinus and was recommended outpatient Coumadin and a cardiology follow-up. Patient since then hasn't had any Coumadin or her INR checks and actually as able to get a pari mutuel clerk appointment today. At the pari mutuel clerk's office she was found to be tachycardic around 130s to 140s atrial fibrillation with RVR and patient was ubsequentlyhe directed to [facility] ER. initial workup in the ER revealed atrial fibrillation with rapid ventricular rate. Patient was started on diltiazem drip for rate control. EKG was nremarkable. Chest x-ray did not show any evidence of decompensated heart failure. Hospitalist service was consulted. At the time of examination patient is alert oriented. She is accompanied with her and daughter kayleen. She denies recent changes in medication. She recently had a reaction to Lasix with lower extremity rash and subsequently stopped. She however denies chest palpitations and lightheadedness dizziness diaphoresis or chest pain. She drinks3-4 ounces off gin every night and despite recommendations during previous hospitalization patient has continued to consume alcohol moderately. She denies recent withdrawal symptoms. Other than that patient denies weight loss or weight gain diarrhea, dysuria. She short of breath at baseline which hasn't changed much in the last few days. She has had a high salt diet in the last couple of days during her body celebration and onsumed crabs 06/30-atient doing well. No overnight events.trial fibrillation however rate controlled around 80s. On metoprolol 25 twice daily. Started on Coumadin. Discussed risk and benefits of anticoagulation. Also recommended discontinuing alcohol use with Coumadin. Continue monitoring and possibly with discharge in 24 hours if rate controlled - Constitutional Vitals: Vital Signs Temp Pulse Resp BP Pulse Ox 98.6 F 58 L 20 109/69 94 06/30/17 16:00 06/29/17 23:56 06/30/17 16:00 06/30/17 16:00 06/30/17 16:00 Period Temp Pulse Resp BP Sys/Sarmiento Pulse Ox Last 24 Hr 97.0 F-98.6 F 58-116 20-20 87-150/52-88 92-100 Intake and Output 06/30/17 06/30/17 06/30/17 05:59 13:59 21:59 Intake Total 50 / 50 700 / 700 Balance 50 / 50 700 / 700 Intake & Output: Intake & Output 06/30/17 06/30/17 06/30/17 05:59 13:59 21:59 Intake Total 50 / 50 700 / 700 Balance 50 / 50 700 / 700 Intake: Oral 50 / 50 700 / 700 Other: Meal Lunch Percent of Meal Consumed 100% Feeding Ability Assist with Tray Set Up # Voids 1 General appearance: cooperative, no acute distress, obese Exam: anxiety alert oriented nonlabored breathing Irregular rhythm no pallor Medical - PN: Obj Da - Labs CBC & Chem 7: 06/30/17 04:00 06/30/17 04:00 Labs: Abnormal Lab Results 06/30/17 06/30/17 04:00 04:00 PT 16.6 H INR 1.3 H Calcium 8.4 L GGT 44 H Meds: Medications Acetaminophen (Tylenol) 650 mg PO Q4-6HP PRN PRN Reason: PAIN/FEVER > 101 Alprazolam (Xanax) 1 mg PO HSP PRN PRN Reason: Insomnia Last Admin: 06/29/17 22:20 Dose: 1 mg Docusate Sodium (Colace) 100 mg PO BID [facility]GETT Last Admin: 06/30/17 07:58 Dose: 100 mg Heparin Sodium (Porcine) (Heparin) 5,000 unit SQ Q12 [facility] Last Admin: 06/30/17 07:57 Dose: 5,000 unit Diltiazem HCl 125 mg/ Sodium (Chloride) 125 mls @ 5 mls/hr IV Q12H BRIDGETT; 5 MG/HR PRN Reason: Protocol Last Admin: 06/30/17 15:52 Dose: Not Given Magnesium Sulfate (Magnesium Sulfate) 2 gm in 50 mls @ 50 mls/hr IV UD PRN PRN Reason: MG = or < 1.7 Acetaminophen (Ofirmev) 1,000 mg in 100 mls @ 200 mls/hr IV Q6HP PRN PRN Reason: PAIN/FEVER > 101 Iron Carb/Multivit/[place]/Folic Acid (Multivitamin W/Minerals) 1 tab PO DAILY [facility] Last Admin: 06/30/17 07:57 Dose: 1 tab Levothyroxine Sodium (Synthroid) 112 mcg PO QAMAC [facility] Last Admin: 06/30/17 07:57 Dose: 112 mcg Levothyroxine Sodium (Synthroid) 25 mcg PO QAMAC [facility] Last Admin: 06/30/17 07:58 Dose: 25 mcg Magnesium Hydroxide (Milk Of Magnesia) 30 ml PO HSP PRN PRN Reason: Constipation Metoprolol Tartrate (Lopressor) 25 mg PO BID [facility] Last Admin: 06/30/17 07:58 Dose: 25 mg Ondansetron HCl (Zofran) 4 mg IV Q4-6HP PRN PRN Reason: Nausea And Vomiting Potassium Chloride (Klor-Con) 40 meq PO DAILYP PRN PRN Reason: K+ < 3.5 Senna/Docusate Sodium (Senna Plus Tablet) 1 tab PO HS [facility] Last Admin: 06/29/17 21:11 Dose: 1 tab Sodium Chloride (Saline Flush) 10 ml IV Q8 [facility] Last Admin: 06/30/17 15:52 Dose: 10 ml Trazodone HCl (Desyrel) 50 mg PO HSP PRN PRN Reason: Insomnia Last Admin: 06/29/17 23:35 Dose: 50 mg Warfarin Sodium (Coumadin Per Pharmacy) 1 order PO DAILY@1400 [facility] Last Admin: 06/30/17 15:51 Dose: Not Given Warfarin Sodium (Coumadin) 4 mg PO DAILY@1400 [facility] Last Admin: 06/30/17 15:51 Dose: 4 mg Medical - PN: A/P - Time Spent With Patient Total time spent is greater than 50% in coordination of care (as documented) at patient's floor/unit and/or counseling patient: 25 - 35 minutes (1) Atrial flutter with rapid ventricular response Status: Acute Assessment and plan: * Atrial fibrillation/flutter with RVR- Rate controlled on eta karin. Reviewed echocardiogram with normal EF as of 05/18. chads Score 2 Continue Coumadin * history of alcohol dependence-no evidence of withdrawal Counseled on alcohol cessation * hypothyroidism on thyroxine * Osteoarthritis with chronic pain-at baseline Plan * continue rate control measures * Continue coumadin * Pre-existing medical condition management as above Current Visit: No
[2017-06-30] MEDS: SENNOSIDES/DOCUSATE SODIUM 1 TAB TABLET PO SCH (21:14)
[2017-06-30] MEDS: ALPRAZolam 0.5 MG TABLET PO PRN (21:16)
[2017-07-01] MEDS: DILTIAZEM 125 MG in 0.9 % SODIUM CHLORIDE 100 ML IV SCH (05:09)
[2017-07-01 05:12] LABS: Mean Cell Volume 93.8 fL (80.0-100.0); Mean Corpuscular HGB Conc 33.5 g/dL (31.0-36.0); Mean Corpuscular Hemoglobin 31.4 pg (26.0-34.0); Platelet Count 159 K/mcL (140-440); RBC 4.12 M/mcL (4.00-5.20); Red Cell Distribution Width 14.4 % (11.5-14.5)
[2017-07-01 05:26] LABS: ALT/SGPT 8 U/l (0-40); Albumin 3.5 gm/dL (3.2-5.2); Albumin/Globulin Ratio 1.6 (1.0-2.3); Alkaline Phosphatase 68 U/L (39-117); Bilirubin,Direct < 0.2 mg/dL (0.0-0.3); Blood Urea Nitrogen 18 mg/dl (8-23); Gamma Glutamyl Transpeptidase 39 U/L (5-36); Magnesium 2.2 mg/dL (1.6-2.5); Uric Acid 7.5 mg/dL (2.5-8.0)
[2017-07-01 06:14] LABS: Band Neutrophils % 2 % (0-10); Eosinophils % (Manual) 3 % (0-7); Lymphocytes % 21 % (15-49); Monocytes % (Manual) 4 % (1-12); Platelet Estimate NORMAL (NORMAL); RBC Morphology NORMAL (NORMAL); Segmented Neutrophils % 70 % (38-78)
[2017-07-01] MEDS: LEVOTHYROXINE 25 MCG TABLET PO SCH (07:10)
[2017-07-01] MEDS: LEVOTHYROXINE SODIUM 112 MCG TABLET PO SCH (07:10)
[2017-07-01] MEDS: METOPROLOL TARTRATE 25 MG TABLET PO SCH (08:50)
[2017-07-01] MEDS: HEPARIN 5,000 UNIT/ML VIAL SQ SCH (08:50)
[2017-07-01] MEDS: MULTIVIT,THER IRON,CA,FA & MIN 1 TABLET PO SCH (08:50)
[2017-07-01] MEDS: 0.9 % SODIUM CHLORIDE 10 ML SYRINGE IV SCH (08:51)
[2017-07-01] MEDS: DOCUSATE SODIUM 100 MG CAPSULE PO SCH (08:51)
--- NOTE | 2017-07-01 10:08 | Discharge Summary ---
Medical - DS: Prov Patient information: Note initiated : 07/01/17 at 10:06 am Service Date, if different from initiated Date: [] Patient: Ale Greene 82 y/o F admitted on 06/29/17 for Patient in A-Flutter, sent from Dr. Tolbert's office. Chief Complaint: [] Date of admission: 06/29/17 19:54 Discharge date: 07/01/17 Primary care physician: Angela El Medical - DS: Meds - Discharge Medications Prescriptions: Metoprolol Tartrate [Lopressor] 25 mg PO BID #60 tablet Warfarin [Coumadin] 4 mg PO DAILY@1400 #30 tablet Active and Home Medications: Home Medications ALPRAZolam [Xanax] 1 mg PO HS PRN 05/18/17 [History Confirmed 06/29/17 Last Taken 06/28/17 21:00] Levothyroxine Sodium [Tirosint] 137 mcg PO DAILY 05/18/17 [History Confirmed 09/04 Last Taken 06/29/17 07:00] Triamcinolone Cream 0.1% 15G 1 applic BID 06/29/17 [History Confirmed 06/29/17 Last Taken 06/29/17 19:00] Metoprolol Tartrate [Lopressor] 25 mg PO BID #60 tablet 07/01/17 [Rx Last Taken Unknown] Warfarin [Coumadin] 4 mg PO DAILY@1400 #30 tablet 07/01/17 [Rx Last Taken Unknown] Medical - DS: Hosp Hospital course: DISCHARGE DIAGNOSIS * Atrial fibrillation/flutter with RVR- Rate controlled on beta karin. Reviewed echocardiogram with normal EF as of 05/18. chads Score 2 Continue Coumadin and INR checks as outpatient. cheduled outpatient appointment with cardiology Dr. Gan * history of alcohol dependence-no evidence of withdrawal Counseled on alcohol cessation * hypothyroidism on thyroxine * Osteoarthritis with chronic pain-at baseline * mild urinary zmctisoow-vmtthp-yz with urology an outpatient. [facility] is a 82 year old F ith a History of atrial fibrillation who was recently hospitalized end of April. She was discharged after a short stay after she converted into sinus and was recommended outpatient Coumadin and a cardiology follow-up. Patient since then hasn't had any Coumadin or her INR checks and actually as able to get a tool planer set up operator appointment today. At the tool planer set up operator's office she was found to be tachycardic around 130s to 140s atrial fibrillation with RVR and patient was ubsequentlyhe directed to [facility] ER. initial workup in the ER revealed atrial fibrillation with rapid ventricular rate. Patient was started on diltiazem drip for rate control. EKG was nremarkable. Chest x-ray did not show any evidence of decompensated heart failure. Hospitalist service was consulted. At the time of examination patient is alert oriented. She is accompanied with her and daughter kayleen. She denies recent changes in medication. She recently had a reaction to Lasix with lower extremity rash and subsequently stopped. She however denies chest palpitations and lightheadedness dizziness diaphoresis or chest pain. She drinks3-4 ounces off gin every night and despite recommendations during previous hospitalization patient has continued to consume alcohol moderately. She denies recent withdrawal symptoms. Other than that patient denies weight loss or weight gain diarrhea, dysuria. She short of breath at baseline which hasn't changed much in the last few days. She has had a high salt diet in the last couple of days during her body celebration and onsumed crabs 06/30-atient doing well. No overnight events.trial fibrillation however rate controlled around 80s. On metoprolol 25 twice daily. Started on Coumadin. Discussed risk and benefits of anticoagulation. Also recommended discontinuing alcohol use with Coumadin. Continue monitoring and possibly with discharge in 24 hours if rate controlled 07/01- atient doing well. No overnight events. Heart rate around 70s to 80s a flutterwith variable rate. Adequately controlled on beta karin. Initiate Coumadin. Discussed the risk and side effect profile of Coumadin. Patient does complain ofslow urinary stream and hence patient will follow up withurology as outpatient in 5-8 days. Also set up appointments with INR clinic primary care physician and tool planer set up operator on discharge. Patient feels at baseline and ready to be dischargeddetailed instructions as below Discharge diagnosis: A. fib RVR - Time Spent with Patient Total time spent providing and/or coordinating discharge services: Greater than 30 minutes Medical - DS: Exam - Constitutional Vitals: Vital Signs Temp Pulse Resp BP BP Pulse Ox 07/01/17 07:08 97.7 F 63 20 127/72 97 07/01/17 04:00 97.9 F 61 20 114/72 94 07/01/17 00:00 98.0 F 65 18 96 06/30/17 20:00 98.4 F 20 122/72 96 06/30/17 16:02 109/69 06/30/17 16:00 98.6 F 20 109/69 94 06/30/17 15:14 97/58 06/30/17 14:02 100/52 06/30/17 12:01 98/63 06/30/17 11:21 97.5 F 20 102/81 100 06/30/17 11:15 102/81 Intake and Output 06/30/17 07/01/17 07/01/17 21:59 05:59 13:59 Intake Total 480 / 480 240 / 240 Balance 480 / 480 240 / 240 Intake: Oral 480 / 480 240 / 240 Other: Meal Dinner Breakfast Percent of Meal Consumed 100% 75% Feeding Ability Assist with Tray Set Up # Voids 1 2 2 Weight 234 lb 8 oz Medical - DS: Data Labs on day of discharge: Labs from last 24 hours 07/01/17 07/01/17 07/01/17 03:47 03:47 03:47 WBC 5.1 RBC 4.12 Hgb 13.0 Hct 38.6 MCV 93.8 MCH 31.4 MCHC 33.5 RDW 14.4 Plt Count 159 MPV 10.1 Total Counted 100 Seg Neutrophils % 70 Band Neutrophils % 2 Lymphocytes % 21 Monocytes % (Manual) 4 Eosinophils % (Manual) 3 WBC Morphology Normal Platelet Estimate Normal RBC Morphology Normal PT 16.6 H INR 1.3 H Sodium 140 Potassium 3.8 Chloride 104 Carbon Dioxide 24 Anion Gap 12.0 BUN 18 Creatinine 1.0 GFR Calculation 52 Glucose 112 H Uric Acid 7.5 Calcium 8.1 L Phosphorus 3.8 Magnesium 2.2 Total Bilirubin 0.7 Direct Bilirubin < 0.2 GGT 39 H AST 13 ALT 8 Alkaline Phosphatase 68 Lactate Dehydrogenase 122 Total Protein 5.7 L Albumin 3.5 Globulin 2.2 Albumin/Globulin Ratio 1.6 Triglycerides 81 Medical - DS: A/P - Patient/Caregiver Discharge Instructions Activity: as per physical therapy Diet: Cardiac Additional Instructions: Follow-up PCP in 5 days F/u cardiology and urology in 3-5 days or earliest appointment available Coumadin osing based on INR to be managed her primary care physician I recommend primary care physician to check INR, CBC BMP UA as a posthospital follow-up ontinue metoprolol 25 mg twice daily Continue fall precautions Continue home health PT OT All meals on chair sitting upright at 90 degrees to prevent aspiration Return to ER if worsening chest palpitationdizziness lightheadedness or bleeding Review risk and side effect profile of medications including coumadin. Side effect may include mild to severe reaction including drug interaction, life threatening bleed including intracranial bleeding and even which can be prevented by close follow-up with PCP and monitoring for side effects Refrain from alcohol use Continue cardiac diet and activity as advised Discussed importance of medication adherence Please review medication list with patient prior to discharge Please schedule follow-up with PCP/Providers prior to discharge and provide printouts Portions of this chart may have been created with [employer] voice recognition software. Occasional wrong-word or ?sound-like? substitutions may have occurred due to the inherent limitations of voice recognition software. Please read the chart carefully and recognize, using context, where the substitutions have occurred. CC- PCP Prescriptions: Metoprolol Tartrate [Lopressor] 25 mg PO BID #60 tablet Warfarin [Coumadin] 4 mg PO DAILY@1400 #30 tablet - Problem Maintenance (1) Atrial flutter with rapid ventricular response Status: Acute - Follow up Plan Follow up with: Angela El MD [Primary Care Provider] - 07/03/17 9:30 am (You are scheduled at the [facility] @ 8:45 AM; please check in at 0815 to have you Protime drawn for your coumadin level. Then proceed to your appointment with Dr. El @ 9:15 AM.) Nain Tolbert MD [Physician] - 08/04/17 1:45 pm (Check in at 1:45 PM for a 2:00 appointment.) Chuy Gaytan MD [Physician] - (Dr. Gaytan's office will contact you to schedule an appointment after reviewing your chart.) Disposition: Home Health Service Prognosis: Good Rehab Potential: Fair
== END 2017-07-01 11:00 | disposition home health service (06) | DRG 310 ==
LOC: ED 16:01 → ICU 19:54
PROVIDERS: ADMIT Internal Medicine; ATTEND Internal Medicine